=== PATIENT | male | born 1955 | race Caucasian/White ===

== ENCOUNTER → 2019-03-13 14:06 | Outpatient (CLI) | payer OTHER, SELFPAY ==
[2019-03-13 14:25] LABS: Basophils # 0.2 K/mm3 (0-0.2); Basophils % 1.6 % (0.1-2.0); Eosinophils # 0.5 K/mm3 (0.0-0.4); Eosinophils % 4.9 % (0.1-12.0); Hematocrit 42.1 % (42.0-52.0); Hemoglobin 14.1 g/dL (14.1-18.0); Lymphocytes # 2.2 K/mm3 (0.7-4.5); Lymphocytes % 21.9 % (10-50); Mean Corpuscular HGB Conc 33.5 g/dL (31.8-35.4); Mean Corpuscular Hemoglobin 34.1 pg (27.0-31.2); Mean Corpuscular Volume 101.6 fl (80-94); Mean Platelet Volume 7.6 fl (7.4-10.4); Monocytes # 0.7 K/mm3 (0.1-1.0); Neutrophils # 6.4 K/mm3 (1.8-7.8); Neutrophils % 64.6 % (37.0-80.0); Platelet Count 479 K/mm3 (142-424); Red Blood Count 4.14 M/mm3 (4.60-6.20); White Blood Count 9.9 K/mm3 (4.8-10.8)
[2019-03-13 15:02] LABS: Alanine Aminotransferase 27 U/L (12-78); Albumin/Globulin Ratio 0.9 (1.1-1.8); Alkaline Phosphatase 67 U/L (46-116); Anion Gap 14.1 mEq/L (5-15); Aspartate Amino Transferase 21 U/L (15-37); Bilirubin,Total 0.3 mg/dL (0.2-1.0); Blood Urea Nitrogen 10 mg/dL (7-18); Calcium 8.5 mg/dL (8.5-10.1); Carbon Dioxide 28 mmol/L (21.0-32.0); Chloride 100 mmol/L (98-107); Chol/HDL Ratio 3.5 (1-3.5); Cholesterol 165 mg/dL (140-200); Creatinine,Serum 0.75 mg/dL (0.70-1.30); Estimated Glomerular Filt Rate 106 ml/min (>60); GFR (African American) 128 ML/MIN (>60); Globulin 3.4 gm/dl (1.3-3.2); Glucose 77 mg/dL (74-106); HDL Cholesterol 47 mg/dL (27-67); LDL Cholesterol 48 mg/dL (0-130); Potassium 4.1 mmoL/L (3.5-5.1); Sodium 138 mmol/L (136-145); T4 (Thyroxine) 6.5 ug/dl (4.7-13.3); Thyroid Stimulating Hormone 2.22 uIU/ml (0.358-3.740); Total Protein,Serum 6.4 gm/dL (6.4-8.2); Triglycerides 349 mg/dL (30-200); VLDL Cholesterol 70 mg/dL (0-40)
[2019-03-13 15:10] LABS: Hemoglobin A1C 5.5 % (0.0-7.0)
[2019-03-15 11:11] LABS: Vitamin D 25 Hydroxy 4.6 ng/mL (30.0-100.0)
== END ==
PROVIDERS: Visit Provider Nurse Practitioner Family
DX: I10 Essential (primary) hypertension (principal); R63.4 Abnormal weight loss; R53.83 Other fatigue; E55.9 Vitamin D deficiency, unspecified
CPT/HCPCS: 80053; 80061; 82652; 83036; 84436; 84443; 85025

== ENCOUNTER → 2019-04-03 14:33 | Outpatient (CLI) | payer MEDICAID, SELFPAY | PROVIDERS: PCP Emergency Medicine; Visit Provider Nurse Practitioner Family | DX: J44.0 Chronic obstructive pulmonary disease with (acute) lower respiratory infection (principal); J20.9 Acute bronchitis, unspecified | CPT/HCPCS: 94060; 94618; 94727; 94729 ==

== ENCOUNTER → 2020-07-02 14:12 | Outpatient (CLI) | payer MEDICAID, SELFPAY ==
--- NOTE | 2020-07-02 14:13 | CT_ITS ---
PROCEDURE: CT LUNG SCREENING CLINICAL INDICATION: LDCT Current smoker 87.5 pack year smoking history copd Family hx lung cancer COMPARISON: CT CHW CT CHEST W/ CONTRAST from 11/24/2014 TECHNIQUE: The exam was performed on a GE Light Speed [address] scanner using 2.90 mGy CTDI. A low dose helical CT CHEST was performed on a multi-detector scanner. All CT scans at the facility use one or more dose reduction, viz: automated exposure control, ma/kV adjustment per patient size (including targeted exams where dose is matched to indication, i.e. head), or iterative reconstruction technique. The LDCT was performed in a facility that meets the criteria for the screening program. Data regarding this exam was submitted to [employer] which is an approved registry. The order for this exam indicates that it came as a result of a lung cancer screening counseling shard decision-making visit that included all the elements required of such a visit including smoking cessation. The radiologist interpreting this exam meets the CMS criteria for the LDCT lung cancer screening program. The exam is reported using the Lung-RADS classification scale and reported to the ACR registry. NOTE: This study was performed for the specific purposes of lung cancer screening and is not an alternative to diagnostic chest CT. RADIATION DOSE: CTDI vol(CT dose Index-volume) = 2.90mG DLP (Dose Length Product) = 114.64 mGcm FINDINGS: COPD with centrilobular emphysema and scattered areas of scarring. There are few small scattered nodular opacities 3 mm or less which are stable. There is mild diffuse bronchial thickening. OTHER FINDINGS: Coronary artery calcifications and thoracic aorta calcific plaque noted. There is some heterogeneous low-density changes in both the right lobe of the liver anteriorly in the left lobe of the liver laterally suggesting hepatic steatosis. IMPRESSION: Lung-RADS Category 1 Negative Follow-up: Continue annual screening with LDCT in 12 months Dictated by: Morales Robison MD 07/15/2020 10:51 Morales Robison MD in [place] 07/15/2020 10:51
--- NOTE | 2020-07-02 15:40 | PC.NURSE ---
PFT Completed without incident. Albuterol 0.083% given via HHN per protocol, Pt tolerated tx well.
== END ==
PROVIDERS: PCP Nurse Practitioner Family; Visit Provider Internal Medicine Pulmonary Disease
DX: R06.09 Other forms of dyspnea (principal); Z87.891 Personal history of nicotine dependence; Z12.2 Encounter for screening for malignant neoplasm of respiratory organs; F17.210 Nicotine dependence, cigarettes, uncomplicated
CPT/HCPCS: 71271; 94060; 94726; 94729

== ENCOUNTER → 2020-07-21 12:14 | Outpatient (CLI) | payer MEDICAID, SELFPAY ==
[2020-07-21 20:22] LABS: Basophils # 0.1 K/mm3 (0-0.2); Basophils % 1.6 % (0.1-2.0); Eosinophils # 0.4 K/mm3 (0.0-0.4); Eosinophils % 6.3 % (0.1-12.0); Hematocrit 49.8 % (42.0-52.0); Hemoglobin 15.6 g/dL (14.1-18.0); Lymphocytes # 2.4 K/mm3 (0.7-4.5); Lymphocytes % 36.9 % (10-50); Mean Corpuscular HGB Conc 31.4 g/dL (31.8-35.4); Mean Corpuscular Hemoglobin 33.6 pg (27.0-31.2); Mean Corpuscular Volume 106.9 fl (80-94); Mean Platelet Volume 8.7 fl (7.4-10.4); Monocytes # 0.7 K/mm3 (0.1-1.0); Monocytes % 10.4 % (1.7-9.3); Neutrophils # 2.9 K/mm3 (1.8-7.8); Neutrophils % 44.8 % (37.0-80.0); Platelet Count 219 K/mm3 (142-424); Red Blood Count 4.66 M/mm3 (4.60-6.20); Red Cell Distribution Width 14.9 % (11.5-17.5); White Blood Count 6.5 K/mm3 (4.8-10.8)
[2020-07-22 12:52] LABS: Alpha-1-Antitrypsin 146 mg/dL (101-187)
[2020-07-23 17:08] LABS: Strongyloides IgG Antibody Negative (Negative)
[2020-07-27 05:46] LABS: D001-IgE D pteronyssinus 1.08 kU/L (Class II); D002-IgE D farinae 1.64 kU/L (Class III); E001-IgE Cat Dander 0.52 kU/L (Class I); E005-IgE Dog Dander 4.52 kU/L (Class IV); G002-IgE Bermuda Grass 0.18 kU/L (Class 0/I); G006-IgE Timothy Grass 0.32 kU/L (Class I); I006-IgE Cockroach, German 3.26 kU/L (Class III); M001-IgE Penicillium chrysogen 0.14 kU/L (Class 0/I); M002-IgE Cladosporium herbarum 0.26 kU/L (Class 0/I); M003-IgE Aspergillus fumigatus 0.48 kU/L (Class I); T001-IgE Maple/Box Elder 0.21 kU/L (Class 0/I); T003-IgE Common Silver Birch 0.15 kU/L (Class 0/I); T006-IgE Cedar, Mountain 0.61 kU/L (Class II); T007-IgE Oak, White 0.31 kU/L (Class 0/I); T008-IgE Elm, American 0.23 kU/L (Class 0/I); T010-IgE Walnut 0.43 kU/L (Class I); T014-IgE Cottonwood 0.51 kU/L (Class I); T070-IgE White Mulberry 0.15 kU/L (Class 0/I); W001-IgE Ragweed, Short 0.31 kU/L (Class 0/I); W011-IgE Thistle, Russian 0.41 kU/L (Class I); W014-IgE Pigweed, Common 0.18 kU/L (Class 0/I)
[2020-07-27 11:34] LABS: E072-IgE Mouse Urine 0.11 kU/L (Class 0/I); Immunoglobulin E, Total 6067 IU/mL (6-495)
== END ==
PROVIDERS: Visit Provider Internal Medicine Pulmonary Disease
DX: J44.9 Chronic obstructive pulmonary disease, unspecified (principal); J45.909 Unspecified asthma, uncomplicated; D72.19 Other eosinophilia
CPT/HCPCS: 82103; 82785; 85025; 86003; 86682